=== PATIENT | male | born 1990 | race Caucasian/White ===

== ENCOUNTER 2018-07-12 10:46 | Day surgery (SDC) | payer OTHER ==
[2018-07-10 10:49] VITALS: BMI 34.0
[~2018-07-12 10:46] MED LIST: LACTATED RINGERS 1,000 ML IV SCH; LIDOCAINE 1% 20 ML VIAL (10MG/ML) FOR IV START INTRADERMA PRN
[2018-07-12 11:26] VITALS: TEMP 98.1
[2018-07-12] MEDS ORDERED: PROPOFOL 10 MG/ML 20 ML VIAL IV ONE (11:30)
--- NOTE | 2018-07-12 11:32 | P.GSHP ---
History of Present Illness H&P Date: 07/12/18 Chief Complaint: Rectal bleeding, hemorrhoids The 27-year-old male who has points of rectal bleeding. Patient states that he feels a mass near his anus when his bowels. Patient has history of hemorrhoids. Past Medical History Additional Past Medical History / Comment(s): HAS RECTAL SWELLING AND BLEEDING OFF AND ON. RECENT COURSE OF ANTIBIOTICS. HAS OCCASSIONAL RECTAL INCONTINENCE WITH COUGHING History of Any Multi-Drug Resistant Organisms: None Reported Additional Past Surgical History / Comment(s): I & D RECTAL MASS/CYST Past Anesthesia/Blood Transfusion Reactions: No Reported Reaction Smoking Status: Current every day smoker - Past Family History Mother Family Medical History: No Reported History Medications and Allergies Home Medications Medication Instructions Recorded Confirmed Type No Known Home Medications 07/10/18 07/10/18 History Allergies Allergy/AdvReac Type Severity Reaction Status Date / Time No Known Allergies Allergy Verified 07/12/18 11:10 Surgical - Exam Vital Signs Temp Pulse Resp BP Pulse Ox 98.1 F 74 18 147/82 95 07/12/18 11:08 07/12/18 11:08 07/12/18 11:08 07/12/18 11:08 07/12/18 11:08 - General well developed, no distress - Eyes PERRL - ENT normal pinna - Neck no masses - Respiratory normal expansion - Cardiovascular Rhythm: regular - Abdomen Abdomen: soft Assessment and Plan Assessment: History of rectal bleeding and hemorrhoids. We'll perform colonoscopy.
[2018-07-12] MEDS ORDERED: LACTATED RINGERS 1,000 ML IV ONE (11:46)
--- NOTE | 2018-07-12 11:46 | P.OP ---
Date of Procedure: 07/12/18 Preoperative Diagnosis: Rectal bleeding Hemorrhoids Postoperative Diagnosis: Internal hemorrhoids Possible colitis transverse colon pathology pending Procedure(s) Performed: Colonoscopy Anesthesia: MAC Surgeon: Eriberto David Pathology: other (Transverse colon biopsy pathology pending) Condition: stable Disposition: PACU Description of Procedure: The patient's placed on the endoscopy table in the lateral position. He received IV sedation. Digital rectal exam was performed which revealed a few internal hemorrhoids. The flexible colonoscope was then placed patient anus and passed throughout the entire colon. The ileocecal valve was visualized. The cecum, ascending colon appeared normal. In the transverse colon there was an area of mild mucosal inflammation. A random biopsy with the cold forcep was performed. Scope was withdrawn and the remainder of the descending colon and sigmoid colon appeared normal. Scope was then brought back the rectum and this appeared normal. Scope was withdrawn for patient.
[2018-07-12 11:51] VITALS: RESP 16
[2018-07-12 12:05] VITALS: BP 156/90; PULSE 65
== END 2018-07-12 12:32 | disposition home or self-care (01) ==
LOC: ORWHC2ENDO 10:46
PROVIDERS: ATTEND Surgery
DX: K62.89 Other specified diseases of anus and rectum (principal); K64.8 Other hemorrhoids; R15.9 Full incontinence of feces; F17.200 Nicotine dependence, unspecified, uncomplicated
CPT/HCPCS: 88305; 45380; J2704

== ENCOUNTER → 2018-10-14 | Outpatient (CLI) | payer OTHER ==
[2018-10-15 01:09] LABS: Gliadin AB IgA, Unit 5.8 U/mL
== END | disposition home or self-care (01) ==
LOC: LABWHC1 13:50
PROVIDERS: ATTEND Internal Medicine
DX: R15.9 Full incontinence of feces (principal)
CPT/HCPCS: 36415; 83516

== ENCOUNTER 2019-05-24 00:32 | Emergency (ER) | payer OTHER ==
[2019-05-24 00:42] VITALS: TEMP 97.6
[2019-05-24] MEDS ORDERED: KETOROLAC 30 MG/ML 1 ML VIAL IVP STA (01:02)
[2019-05-24] MEDS ORDERED: METOCLOPRAMIDE 5 MG/ML 2 ML VIAL IVP STA (01:02)
[2019-05-24] MEDS ORDERED: SODIUM CHLORIDE 0.9% 1,000 ML IV ONE (01:03)
[2019-05-24] MEDS ORDERED: diphenhydrAMINE 50 MG/ML 1 ML VIAL IVP STA (01:03)
--- NOTE | 2019-05-24 01:07 | ED ---
Headache HPI - General Chief Complaint: Headache Stated Complaint: Migraine Time Seen by Provider: 05/24/19 00:45 Mode of arrival: ambulatory Limitations: no limitations - History of Present Illness Initial Comments: 28 year-old male patient presents to the emergency department today for evaluation of headache. Patient states this started around 11:00 this morning. States he did see his primary care physician and received injection and prescriptions for sumatriptan and Zofran today. States his headache did go away for a short period but then returned tonight. Patient states he did take ibuprofen for but it did not help. Patient reports nausea with no vomiting. States he does have intermittent blurred vision but denies any double vision. Patient states the pain encompasses the right eye. States is quite intense. Patient states he's been having frequent headaches similar to this over the last 2 weeks. Patient denies any recent rash, fever, chills, shortness breath, chest pain, abdominal pain, diarrhea, constipation, back pain, hematuria, dysuria, urinary urgency, urinary frequency, or any other complaints. - Related Data Home Medications Medication Instructions Recorded Confirmed No Known Home Medications 07/10/18 07/10/18 Allergies Allergy/AdvReac Type Severity Reaction Status Date / Time No Known Allergies Allergy Verified 05/24/19 00:43 Review of Systems ROS Statement: Those systems with pertinent positive or pertinent negative responses have been documented in the HPI. ROS Other: All systems not noted in ROS Statement are negative. Past Medical History Additional Past Medical History / Comment(s): HAS RECTAL SWELLING AND BLEEDING OFF AND ON. RECENT COURSE OF ANTIBIOTICS. HAS OCCASSIONAL RECTAL INCONTINENCE WITH COUGHING , History of Any Multi-Drug Resistant Organisms: MRSA Date of last positivie culture/infection: 2010 MDRO Source:: right silvestre Additional Past Surgical History / Comment(s): I & D RECTAL MASS/CYST Past Anesthesia/Blood Transfusion Reactions: No Reported Reaction Past Psychological History: No Psychological Hx Reported Smoking Status: Current every day smoker Past Alcohol Use History: Rare Past Drug Use History: None Reported - Past Family History Mother Family Medical History: No Reported History General Exam Limitations: no limitations General appearance: alert, in no apparent distress, other (This is a well- developed, well-nourished adult male patient in no acute distress. Vital signs upon presentation are temperature 97.6F, pulse 54, respiration 16, blood pressure 156/84, pulse ox 98% on room air.) Eye exam: Present: normal appearance, PERRL, EOMI. Absent: scleral icterus, conjunctival injection, periorbital swelling ENT exam: Present: normal exam, normal oropharynx, mucous membranes moist Respiratory exam: Present: normal lung sounds bilaterally. Absent: respiratory distress, wheezes, rales, rhonchi, stridor Cardiovascular Exam: Present: regular rate, normal rhythm, normal heart sounds. Absent: systolic murmur, diastolic murmur, rubs, gallop, clicks GI/Abdominal exam: Present: soft, normal bowel sounds. Absent: distended, tenderness, guarding, rebound, rigid Neurological exam: Present: alert, oriented X3, CN II-XII intact, other (Strength in all 4 extremities is 5/5.) Psychiatric exam: Present: normal affect, normal mood Skin exam: Present: warm, dry, intact, normal color. Absent: rash Course Vital Signs 05/24/19 05/24/19 05/24/19 00:38 01:51 02:39 Temperature 97.6 F 97.6 F 97.6 F Pulse Rate 54 L 54 L 58 L Respiratory 16 18 18 Rate Blood Pressure 156/84 130/89 130/89 O2 Sat by Pulse 98 99 100 Oximetry Medical Decision Making - Medical Decision Making 28 old male patient presents to the emergency department today for evaluation of headache. Patient states his been present since 11:00 this morning. States his been having increasing frequency of headaches over the last 2 weeks. Did see his family physician today and was given prescription for Imitrex and Zofran. States his headache returned after taking his medications. Physical examination is unremarkable. He is neurologically intact with no focal deficits. I did offer computed tomography scan, patient declined. He was given IV fluids and medication here in the emergency department. Upon reevaluation he does report complete resolution of symptoms. He'll be discharged home at this time to follow-up with his primary care physician for recheck in 1-2 days. He is urged discussed computed tomography scan or other imaging. Return parameters were discussed in detail. He verbalizes understanding and agrees with this plan. Disposition Clinical Impression: Headache Disposition: HOME SELF-CARE Condition: Good Instructions (If sedation given, give patient instructions): Acute Headache (ED) Additional Instructions: Increase fluids. Rest. Follow-up with your primary care physician for recheck in 1-2 days. Return to the emergency department immediately for any new, worsening, or concerning symptoms. Is patient prescribed a controlled substance at d/c from ED?: No Referrals: Aki Rogers MD [Primary Care Provider] - 1-2 days Time of Disposition: 02:19
[2019-05-24 01:52] VITALS: BP 130/89; RESP 18
[2019-05-24 02:40] VITALS: PULSE 58
== END 2019-05-24 02:37 | disposition home or self-care (01) ==
LOC: EC 00:32
DX: R51 Headache (principal); R11.0 Nausea; H53.8 Other visual disturbances; F17.200 Nicotine dependence, unspecified, uncomplicated; Z86.14 Personal history of Methicillin resistant Staphylococcus aureus infection; Z53.29 Procedure and treatment not carried out because of patient's decision for other reasons
CPT/HCPCS: 99283; 96374; 96375 ×2; 96361; J1200; J2765; J1885

== ENCOUNTER 2019-06-07 09:13 | Emergency (ER) | payer OTHER ==
[2019-06-07 09:20] VITALS: RESP 18
[2019-06-07] MEDS ORDERED: METOCLOPRAMIDE 5 MG/ML 2 ML VIAL IVP STA (09:49)
[2019-06-07] MEDS ORDERED: diphenhydrAMINE 50 MG/ML 1 ML VIAL IVP STA (09:49)
[2019-06-07] MEDS ORDERED: KETOROLAC 30 MG/ML 1 ML VIAL IVP STA (09:49)
[2019-06-07] MEDS ORDERED: SODIUM CHLORIDE 0.9% 500 ML 500 ML IV ONE (09:49)
--- NOTE | 2019-06-07 10:02 | ED ---
Headache HPI - General Chief Complaint: Headache Stated Complaint: HEADACHE Time Seen by Provider: 06/07/19 09:40 Source: patient, RN notes reviewed Mode of arrival: ambulatory Limitations: no limitations - History of Present Illness Initial Comments: This a 28-year-old male presents to the emergency Department chief complaint of severe headache. Patient states that he is here today with a similar headache and states that the recommended CT given the fact his never had headaches like this in the past. He states that his worst headaches. He states it's on the right frontal aspect behind his right eye. No visual changes he does admit to photophobia. Patient has neck pain, fever, chills, chest pain or shortness breath no focal weakness. Patient did not take any medications for this. Patient is currently been worked up for possible scleroderma. Patient states she's been referred to a polisher implant. - Related Data Home Medications Medication Instructions Recorded Confirmed Calcium Polycarbophil [Fibercon] 625 mg PO BID 06/07/19 06/07/19 Cholestyramine (with Sugar) 4 gm PO BID 06/07/19 06/07/19 [Cholestyramine Packet] SUMAtriptan SUCCINATE [Imitrex] 100 mg PO DAILY PRN 06/07/19 06/07/19 Previous Rx's Medication Instructions Recorded Butalb/APAP/Caff 50-325-40Mg 1 tab PO Q4H PRN #10 tablet 06/07/19 [Fioricet 50-325-40] Allergies Allergy/AdvReac Type Severity Reaction Status Date / Time milk Allergy Unknown Verified 06/07/19 10:31 Review of Systems ROS Statement: Those systems with pertinent positive or pertinent negative responses have been documented in the HPI. ROS Other: All systems not noted in ROS Statement are negative. Past Medical History Additional Past Medical History / Comment(s): HAS RECTAL SWELLING AND BLEEDING OFF AND ON. RECENT COURSE OF ANTIBIOTICS. HAS OCCASSIONAL RECTAL INCONTINENCE WITH COUGHING , History of Any Multi-Drug Resistant Organisms: MRSA Date of last positivie culture/infection: 2010 MDRO Source:: right silvestre Additional Past Surgical History / Comment(s): I & D RECTAL MASS/CYST Past Anesthesia/Blood Transfusion Reactions: No Reported Reaction Past Psychological History: No Psychological Hx Reported Smoking Status: Current every day smoker Past Alcohol Use History: Rare Past Drug Use History: None Reported - Past Family History Mother Family Medical History: No Reported History General Exam Limitations: no limitations General appearance: alert, in no apparent distress Head exam: Present: atraumatic, normocephalic, normal inspection Eye exam: Present: normal appearance, PERRL, EOMI. Absent: scleral icterus, conjunctival injection, periorbital swelling ENT exam: Present: normal exam, normal oropharynx, mucous membranes moist Neck exam: Present: normal inspection, full ROM. Absent: tenderness, meningismus, lymphadenopathy Respiratory exam: Present: normal lung sounds bilaterally. Absent: respiratory distress, wheezes, rales, rhonchi, stridor Cardiovascular Exam: Present: regular rate, normal rhythm, normal heart sounds. Absent: systolic murmur, diastolic murmur, rubs, gallop, clicks Neurological exam: Present: alert, oriented X3, CN II-XII intact, reflexes normal. Absent: motor sensory deficit Skin exam: Present: warm, dry, intact, normal color. Absent: rash Course Vital Signs 06/07/19 09:17 Temperature 98.5 F Pulse Rate 63 Respiratory 18 Rate Blood Pressure 126/66 O2 Sat by Pulse 100 Oximetry Medical Decision Making - Medical Decision Making 28 show male presents emergency from for recurrent headache. CT was obtained this time given the fact he has never had a headache like this. CT is negative. Patient feels improved after IV medications. Patient will be discharged does have close follow-up he does have a neurologist. Return parameters discussed. Disposition Clinical Impression: Migraine headache Disposition: HOME SELF-CARE Condition: Stable Instructions (If sedation given, give patient instructions): Acute Headache (ED) Additional Instructions: Please return to the Emergency Department if symptoms worsen or any other concerns. Prescriptions: Butalb/APAP/Caff 50-325-40Mg [Fioricet 50-325-40] 1 tab PO Q4H PRN #10 tablet PRN Reason: Headache Is patient prescribed a controlled substance at d/c from ED?: No Referrals: Aki Rogers MD [Primary Care Provider] - 1-2 days Time of Disposition: 10:41
--- NOTE | 2019-06-07 10:12 | CT ---
EXAMINATION TYPE: CT brain wo con DATE OF EXAM: 06/07/2019 COMPARISON: NONE HISTORY: Rt sided MARTINEZ CT DLP: 1035.4 mGycm Automated exposure control for dose reduction was used. FINDINGS: Central structures are midline. There is no evidence of hydrocephalus. No acute focal lesion, mass ef fect or midline shift is seen. I do not see evidence of intracranial blood. Visualized portions of the paranasal sinuses and mastoids are clear. The calvarium is intact. IMPRESSION: NORMAL MRI OF THE BRAIN.
[2019-06-07 11:31] VITALS: BP 126/80; PULSE 73; TEMP 97.8
== END 2019-06-07 11:05 | disposition home or self-care (01) ==
LOC: EC 09:13
DX: G43.909 Migraine, unspecified, not intractable, without status migrainosus (principal); F17.200 Nicotine dependence, unspecified, uncomplicated; Z91.011 Allergy to milk products
CPT/HCPCS: 70450; 99283; 96374; 96375 ×2; J1200; J2765; J1885

== ENCOUNTER → 2020-05-04 | Outpatient (CLI) | payer OTHER | END | disposition home or self-care (01) | LOC: LABWHC1 09:58 | PROVIDERS: ATTEND Psychiatry & Neurology Pain Medicine | DX: Z51.81 Encounter for therapeutic drug level monitoring (principal); Z79.899 Other long term (current) drug therapy | CPT/HCPCS: 36415; 82180; 82306 ==

== ENCOUNTER → 2020-07-14 | Outpatient (CLI) | payer OTHER | END | disposition home or self-care (01) | LOC: LABWHC1 13:23 | PROVIDERS: ATTEND Colon & Rectal Surgery | DX: Z01.818 Encounter for other preprocedural examination (principal); Z20.828 Contact with and (suspected) exposure to other viral communicable diseases | CPT/HCPCS: U0003; C9803 ==

== ENCOUNTER → 2020-10-20 | Outpatient (CLI) | payer OTHER ==
[2020-10-20 22:43] LABS: Anti-DNA, DS unit <1.0 IU/mL; Anti-Smith Ab Interp NEGATIVE (NEGATIVE); Cyclic Citrull Pep IgG Unit <0.5 U/mL; Cyclic Citrullinated Pep IgG NEGATIVE (NEGATIVE); DNA Double-Stranded NEGATIVE (NEGATIVE); JO-1 IgG Antibody <0.2 AI; Scleroderma SC-70 Ab 0.8 AI
[2020-10-20 23:32] LABS: C Reactive Protein 0.5 mg/dL (0.0-0.8); Calcium 9.2 mg/dL (8.7-10.3)
== END | disposition home or self-care (01) ==
LOC: LABWHC1 12:14
PROVIDERS: ATTEND Psychiatry & Neurology Pain Medicine
DX: M25.50 Pain in unspecified joint (principal)
CPT/HCPCS: 36415; 82306; 82310; 83516; 85652; 86038; 86140; 86200; 86225; 86235

== ENCOUNTER → 2021-09-01 | Outpatient (CLI) | payer OTHER | END | disposition home or self-care (01) | LOC: LABWHC1 08:23 | PROVIDERS: ATTEND Psychiatry & Neurology Pain Medicine | DX: E55.9 Vitamin D deficiency, unspecified (principal) | CPT/HCPCS: 36415; 82306 ==

== ENCOUNTER → 2022-01-27 | Outpatient (CLI) | payer MEDICARE, OTHER | END | disposition home or self-care (01) | LOC: LABWHC1 10:51 | DX: E55.9 Vitamin D deficiency, unspecified (principal) | CPT/HCPCS: 36415; 82306 ==

== ENCOUNTER → 2022-06-23 | Outpatient (CLI) | payer MEDICARE, OTHER ==
[2022-06-23 15:15] LABS: African American GFR (CKD) 133.3 (60.0-200.0); Albumin 4.3 g/dL (3.8-4.9); Albumin/Globulin Ratio 1.9 (1.60-3.17); Anion Gap 11.1 mmol/L (10.00-18.00); BUN/Creat Ratio 11.22 Ratio (12.00-20.00); Blood Urea Nitrogen 10.1 mg/dL (9.0-27.0); Calcium 9.1 mg/dL (8.7-10.3); Carbon Dioxide 23.1 mmol/L (20.0-27.5); Globulin 2.3 g/dL (1.6-3.3); Potassium 4.3 mmol/L (3.5-5.5); Total Bilirubin 0.3 mg/dL (0.30-1.20); Total Protein 6.6 g/dL (6.2-8.2)
== END | disposition home or self-care (01) ==
LOC: LABWHC1 08:20
PROVIDERS: ATTEND Internal Medicine
DX: E55.9 Vitamin D deficiency, unspecified (principal)
CPT/HCPCS: 36415; 80053; 82306

== ENCOUNTER → 2024-07-24 | Outpatient (CLI) | payer MEDICARE, OTHER ==
--- NOTE | 2024-07-24 12:27 | CT ---
EXAMINATION TYPE: CT abdomen pelvis w con DATE OF EXAM: 07/24/2024 COMPARISON: None CLINICAL INDICATION: Male, 33 years old with history of K62.5 HEMMORRHAGE OF ANUS AND RECTUM; PHH, bl ood in stool TECHNIQUE: Performed with Oral Contrast and with IV Contrast, patient injected with 100 mL of Isovue 300. CT DLP: [address] CTDI: mGy Automated exposure control for dose reduction was used. FINDINGS: The lung bases are clear. There are multiple gallstones. There is no biliary ductal dilatation. There is no focal mass or organomegaly involving the liver, pancreas, spleen or adrenal glands. There is no solid renal mass or hydronephrosis and there is homogeneous contrast enhancement of the r enal parenchyma. The caliber the abdominal aorta is normal is no retroperitoneal adenopathy or hemorr mee. The bowel loops are normal in caliber and there is no evidence of dilatation or obstruction. No infla mmatory changes are identified in the bowel wall or mesentery. There is no free intraperitoneal air or fluid. No pelvic mass, free fluid, abscess or adenopathy. There is a catheter entering the right buttock and terminating in the right perirectal soft tissues. IMPRESSION: 1. Cholelithiasis without changes of acute cholecystitis. 2. Right pelvic catheter as described above. 3. No acute changes within the abdomen or pelvis. No significant abnormality seen. [facility], , 07/24/2024 12:25 PM
== END | disposition home or self-care (01) ==
LOC: RADCTMAIN 10:06
PROVIDERS: ATTEND Internal Medicine
DX: K80.20 Calculus of gallbladder without cholecystitis without obstruction (principal); K62.5 Hemorrhage of anus and rectum
CPT/HCPCS: 74177; Q9967

== ENCOUNTER → 2024-09-11 | Outpatient (CLI) | payer MEDICARE, OTHER ==
--- NOTE | 2024-09-11 09:28 | NM ---
EXAMINATION TYPE: NM hepatobiliary w EF DATE OF EXAM: 09/11/2024 COMPARISON: CT 07/24/2024 CLINICAL INDICATION: Male, 34 years old with right upper quadrant pain, history of K80.00 calculus of gall bladder; TECHNIQUE: After the intravenous administration of 5.21 mCi Tc 99m Mebrofenin hepatobiliary scintigra phy is performed. Immediate images post injection. FINDINGS: There is satisfactory initial accumulation of tracer by the liver. The gallbladder is visualized wit hin 20 minutes. The small bowel activity is noted within 6 minutes. At one hour 8 ounces of oral en sure plus is given to mimic CCK and gallbladder ejection fraction is calculated at 83 %, slightly rachel vated. IMPRESSION: 1. No scintigraphic evidence for acute/chronic cholecystitis or biliary dyskinesia. 2. Mildly elevated gallbladder ejection fraction at 83% may be seen with gallbladder hyperkinesis. [facility], , 09/11/2024 9:26 AM
== END | disposition home or self-care (01) ==
LOC: RADNMMAIN 06:20
PROVIDERS: ATTEND Internal Medicine
DX: K80.00 Calculus of gallbladder with acute cholecystitis without obstruction (principal); R10.11 Right upper quadrant pain
CPT/HCPCS: 78226; A9537